=== PATIENT | female | born 1975 | race Caucasian/White ===

== ENCOUNTER 2016-06-18 15:46 | Outpatient (CLI) | payer OTHER ==
[2016-01-15 20:32] VITALS: BP 117/68
[2016-06-19 00:02] LABS: RUBELLA AB, IgG 79.3 IU/mL
== END 2016-06-18 15:47 ==
LOC: LAB 15:46
PROVIDERS: ATTEND Physician Assistant
DX: Z01.84 Encounter for antibody response examination (principal)
CPT/HCPCS: 36415; 86735; 86762; 86765